=== PATIENT | male | born 1960 | race Caucasian/White ===

== ENCOUNTER 2017-04-16 11:47 | Observation (INO) | payer MEDICARE ==
[~2017-04-16] VITALS: Ht 167.6 cm; Wt 86.6 kg
[2017-04-16 12:09] LABS: BASOPHILS 0.1 % (0-2); EOSINOPHILS 1.5 % (0-7); HEMATOCRIT 38.6 % (42.0-54.0); HEMOGLOBIN 12.8 g/dL (13.5-17.5); IMMATURE GRANULOCYTES 0.1 % (0-5); LYMPHOCYTES 25.2 % (15-50); MCH 31.5 pg (26.0-34.0); MCHC 33.2 g/dL (31.0-37.0); MCV 95.1 fL (80.0-100.0); MEAN PLATELET VOLUME 9.4 fL (7.4-10.4); MONOCYTES 6.1 % (2-11); PLATELET COUNT 281 10x3/uL (130-400); RBC 4.06 10x6/uL (4.20-6.10); RDW 13.6 % (11.5-14.5); WBC 6.8 10x3/uL (4.8-10.8)
[2017-04-16 12:32] LABS: ALBUMIN 3.6 g/dL (3.4-5.0); ALKALINE PHOSPHATASE 121 U/L (46-116); ALT (SGPT) 18 U/L (10-68); BILIRUBIN - TOTAL 0.32 mg/dL (0.2-1.3); CALC OSMOLALITY 276 mosm/kg (275-300); CALCIUM 8.8 mg/dL (8.5-10.1); CARBON DIOXIDE 28.4 mmol/L (21.0-32.0); CHLORIDE - SERUM 99 mmol/L (98-107); GLUCOSE 144 mg/dL (74-106); POTASSIUM - SERUM 3.9 mmol/L (3.5-5.1); SODIUM 137 mmol/L (136-145); UREA NITROGEN 13 mg/dL (7-18); eGFR NON AFRICAN AMERICAN 82 mL/min (90-120)
[2017-04-16 12:44] LABS: CHOL - HDL RATIO 5.2 ratio (2.3-4.9); CHOLESTEROL, TOTAL 172 mg/dL (0-200); CKMB 0.5 U/L (0.0-3.6); CREATINE KINASE 72 UL (21-232); HDL CHOLESTEROL 33 mg/dL (32-96); LDL CHOLESTEROL 80 mg/dL (0-100); LDL-HDL RATIO 2.4 ratio (1.5-3.5); TRIGLYCERIDE 296 mg/dL (30-200)
[2017-04-16 12:45] LABS: TROPONIN-I < 0.017 ng/mL (0.000-0.060)
--- NOTE | 2017-04-16 13:33 | NUR ---
ASSESSED RESP STATUS. PT SUB C/O IRRITATING COUGH ALSO SUB CO NON PRODUCTIVE COUGH. BILATERAL DIMINISHED BREATH SOUNDS WITH FAINT EXP WHEEZE LOCATED RIGHT APICAL AREA. SPO2 CURRENT 97% ON 29% FI02 BILATERAL EXCURSION NOTED ZERO S/S OF IMMEDIATE RESP DISTRESS AT THIS TIME
[2017-04-16 17:19] LABS: CKMB 0.6 U/L (0.0-3.6); CREATINE KINASE 79 UL (21-232)
[2017-04-16 17:20] LABS: TROPONIN-I < 0.017 ng/mL (0.000-0.060)
[2017-04-16 18:03] LABS: % SATURATION 17 % (15-55); IRON 64 ug/dl (35-150); TOTAL IRON BIND CAPACITY 356 ug/dl (260-445); UNSAT IRON BIND CAPACITY 292 ug/dl (150-375)
[2017-04-16] MEDS ORDERED: XANAX1 MG PO (20:17)
[2017-04-16] MEDS ORDERED: ROXICODONE15 MG PO (20:17)
[2017-04-16] MEDS ORDERED: MS CONTIN60 MG PO (20:17)
[2017-04-16] MEDS ORDERED: AMITIZA24 MCG PO (20:18)
[2017-04-16] MEDS ORDERED: OMEPRAZOLE20 M1 PO (20:18)
[2017-04-16] MEDS ORDERED: ALDACTONE25 MG PO (20:18)
[2017-04-16] MEDS ORDERED: K-TAB10 MEQ PO (20:19)
[2017-04-16] MEDS ORDERED: DEPAKOTE250 MG PO (20:19)
[2017-04-16] MEDS ORDERED: ZYLOPRIM100 MG PO (20:19)
[2017-04-16] MEDS ORDERED: PRAVASTATIN SOD10 MG PO (20:20)
[2017-04-16] MEDS ORDERED: MYSOLINE 50 MG50 MG PO (20:20)
[2017-04-16] MEDS ORDERED: BUMEX2 MG PO (20:20)
[2017-04-16] MEDS ORDERED: ROBAXIN500 MG PO (20:20)
[2017-04-16] MEDS ORDERED: SEROQUEL200 MG PO (20:21)
[2017-04-16] MEDS ORDERED: NEURONTIN 400400 MG PO (20:21)
[2017-04-16] MEDS ORDERED: FLOVENT DI50 MCG/DIS INH (20:21)
[2017-04-16] MEDS ORDERED: GLYCOLAX527 GM PO (20:21)
[2017-04-16] MEDS ORDERED: PROZAC20 MG PO (20:22)
[2017-04-16] MEDS ORDERED: TRAZODONE HCL150 MG PO (20:22)
[2017-04-16] MEDS ORDERED: COMBIVENT RESPIM4 GM INH (20:23)
[2017-04-16] MEDS ORDERED: SEROQUEL50 MG PO (20:23)
[2017-04-16] MEDS ORDERED: BUSPAR10 MG PO (20:23)
[2017-04-16] MEDS ORDERED: SEROQUEL300 MG PO (20:23)
[2017-04-16] MEDS ORDERED: ZOFRAN4 MG PO (20:24)
[2017-04-16] MEDS ORDERED: LOMOTIL TABLET1 TAB PO (20:24)
[2017-04-16] MEDS ORDERED: BUSPAR 15 MG TA15 MG PO (20:24)
--- NOTE | 2017-04-16 20:48 | NUR ---
PT AWAKE, ALERT, ORIENTED, HOWEVER SLOW TO ANSWER AND IS A QUESTIONABLE TO POOR HISTORIAN. UNABLE TO VERIFY MEDS OR WHEN EACH MED WAS LAST TAKEN. PT ASKING FOR ICE CREAM AND A CUP OF ICE FOR HIS SPRITE, DENIES ANY OTHER NEEDS. I FLUSHED PTS IV TO LT AC WITHOUT ANY DIFFICULTY. WILL CONTINUE TO MONITOR CLOSELY. BED LOW, CALL LIGHT IN REACH, SIDE RAILS X 2, HOB 35 DEGREES.
[2017-04-16 21:38] VITALS: BP 114/59
[2017-04-16 23:24] LABS: CKMB 0.5 U/L (0.0-3.6); CREATINE KINASE 67 UL (21-232)
[2017-04-16 23:25] LABS: TROPONIN-I < 0.017 ng/mL (0.000-0.060)
[2017-04-17 00:37] VITALS: BP 110/61
[2017-04-17 01:34] VITALS: BP 114/59; Ht 167.6 cm; Wt 86.6 kg
[2017-04-17 04:53] VITALS: BP 126/61
[2017-04-17 05:36] LABS: BASOPHILS 0.2 % (0-2); EOSINOPHILS 2.2 % (0-7); HEMATOCRIT 36.8 % (42.0-54.0); HEMOGLOBIN 12.1 g/dL (13.5-17.5); IMMATURE GRANULOCYTES 0.2 % (0-5); LYMPHOCYTES 26.2 % (15-50); MCH 31.7 pg (26.0-34.0); MCHC 32.9 g/dL (31.0-37.0); MCV 96.3 fL (80.0-100.0); MEAN PLATELET VOLUME 9.4 fL (7.4-10.4); MONOCYTES 6.5 % (2-11); NEUTROPHILS 64.7 % (40-80); PLATELET COUNT 303 10x3/uL (130-400); RBC 3.82 10x6/uL (4.20-6.10); RDW 13.7 % (11.5-14.5)
[2017-04-17 05:40] LABS: WBC 11.3 10x3/uL (4.8-10.8)
[2017-04-17 06:10] LABS: CALC OSMOLALITY 273 mosm/kg (275-300); CALCIUM 8.6 mg/dL (8.5-10.1); CARBON DIOXIDE 32.6 mmol/L (21.0-32.0); CHLORIDE - SERUM 99 mmol/L (98-107); CKMB 0.4 U/L (0.0-3.6); CREATINE KINASE 62 UL (21-232); GLUCOSE 111 mg/dL (74-106); POTASSIUM - SERUM 4.2 mmol/L (3.5-5.1); SODIUM 136 mmol/L (136-145); UREA NITROGEN 14 mg/dL (7-18); eGFR NON AFRICAN AMERICAN 82 mL/min (90-120)
[2017-04-17 06:13] LABS: TROPONIN-I < 0.017 ng/mL (0.000-0.060)
[2017-04-17 08:17] VITALS: BP 100/61
--- NOTE | 2017-04-17 10:46 | NUR ---
TELEMETRY SR. ECHO COMPLETED AT BS. CALL LIGHT IN REACH. WILL CONT. PLAN OF CARE.
[2017-04-17 11:22] VITALS: BP 113/74
--- NOTE | 2017-04-17 12:04 | NUR ---
TELEMETRY SR. UP AMBULATING HALLWAY. GAIT STEADY.
[2017-04-17] MEDS ORDERED: NICODERM C1 PATCH .2 TRANSDERM (12:06)
[2017-04-17] MEDS ORDERED: Mevacor PO (12:07)
--- NOTE | 2017-04-17 13:48 | NUR ---
IV AND TELEMETRY DCD. DC PLANS GIVEN. UNDERSTANDING VOICED. ESCORTED TO CAR BY CAREGIVER.
[2017-04-18 08:18] LABS: FOLATE (FOLIC ACID) - SERUM 2.2 ng/mL (>3.0)
--- NOTE | 2017-04-22 13:58 | CN ---
PATIENT NAME:MARIS CLARK MEDICAL RECORD: [id number] : 60 LOCATION:DKael D.2116 ADMIT DATE: 04/16/17 ACCOUNT: [id number] CONSULTING PHYSICIAN: MARK BORJA MD REFERRING PHYSICIAN: ALIA ARVIZU MD DATE OF CONSULTATION: 04/17/2017 HISTORY OF PRESENT ILLNESS: A 56-year-old gentleman with no known history of coronary artery disease. He has a history of dyslipidemia, hypertension. The last week and he had an episode of chest pain, resolved spontaneously. Enzymes negative. ECG without acute change. We are asked to see him concerning cardiovascular status. PAST MEDICAL HISTORY: Includes: 1. History of seizure disorder. 2. Chronic pain. 3. Anxiety disorder. MEDICATIONS: Include Bumex 2 mg p.o. b.i.d., trazodone 150 mg p.o. q.h.s., BuSpar 10 mg b.i.d., Seroquel 50 mg p.o. q.a.m. and 300 q.p.m., primidone 50 t.i.d., Roxicodone 15 mg q.4 hours p.r.n., morphine or MS Contin 60 mg b.i.d., Neurontin 400 t.i.d., Prozac 20 every day, Depakote 250 b.i.d., Xanax 1 mg p.o. b.i.d. p.r.n., Aldactone 25 every day, pravastatin 10 every day, and aspirin daily. SOCIAL HISTORY: recently. He takes care of his ADLs. He is a nonsmoker, nondrinker. ALLERGIES: HALDOL AND PROLIXIN. REVIEW OF SYSTEMS: The patient reports easy bruising but reports no swollen glands. The patient reports no fever, no night sweats, no significant weight gain, no significant weight loss. No significant exercise tolerance. The patient reports no dry eyes, no irritation, no vision change. Patient reports no difficulty hearing and no ear pain. Patient reports no frequent nose bleeds or nose and sinus problems. Patient reports on arm pain on exertion. No shortness of breath while lying down. No history of heart murmur. Patient reports no cough, no wheezing or coughing up blood. Patient reports no abdominal pain, no vomiting. Normal appetite. No diarrhea and not vomiting blood. No nausea and no constipation. Patient reports no incontinence. No difficulty urinating. No hematuria. No increased frequency. Patient reports no muscle aches. No weakness, no arthralgias, no back pain. No swelling of the extremities. Patient reports no abnormal mole, no jaundice, no rashes. Reports no loss of consciousness. No weakness and no numbness. No seizures, dizziness, or headaches. The patient reports no depression, no sleep disturbance, feeling safe in a relationship and no alcohol abuse. Patient reports on fatigue. Reports no runny nose or sinus pressure. No itching, no hives, and no frequent sneezing. PHYSICAL EXAMINATION: GENERAL: Pleasant gentleman in no acute distress. VITAL SIGNS: Blood pressure 100/60 and pulse 81. HEENT: Normocephalic, atraumatic. NECK: No bruits noted. HEART: Regular, II/ systolic ejection murmur. CONSULT REPORT [id number] CLARKMARIS LUNGS: Good air excursion. ABDOMEN: Soft, nontender. EXTREMITIES: Pulses 2+. No edema. NEUROLOGIC: Grossly intact. DIAGNOSTIC DATA: ECG is normal. Cardiac enzymes normal times 3. IMPRESSION: Certainly has risk factors for coronary artery disease; however, has obvious social stressors at home, would like to defer any workup, I think it is reasonable at this time. We will see him back in the office in 2-3 weeks and return to the ER if symptoms recur. TRANSINT:[id number] Voice Confirmation ID: [id number] DOCUMENT ID: [id number] MARK BORJA MD at 1358 CC: [id number] DICTATION DATE: 04/17/17905 CHAIN PULLER: 04/17/17 1326 DIS IN 04/17/17 [facility] [address] [place] [address]
--- NOTE | 2017-04-22 13:58 | EC ---
PATIENT:MARIS CLARK DATE OF SERVICE: 04/16/17 SEX: M MEDICAL RECORD: [id number] DATE OF : 60 LOCATION:D. D.211 AGE OF PATIENT: 56 ADMISSION DATE: 04/16/17 REFERRING PHYSICIAN: INTERPRETING PHYSICIAN: MARK BORJA MD ECHOCARDIOGRAM REPORT ECHO CHARGES 4 ECHO COMPLETE CLINICAL DIAGNOSIS: CHF ECHOCARDIOGRAPHIC MEASUREMENTS (adult normal given) AC root (d.<3.7cm) 3.2 cm LV Septum d (<1.2 cm> 1.4 cm Valve Excursion 2.3 cm LV Septum (systole) 1.9 cm Left Atria (s.<4.0cm> 4.2 cm LVPW d(<1.2cm) 1.1 cm RV (d.<2.3cm) 2.5 cm LVPW (sytole) 1.9 cm LV diastole(<5.6CM) 4.3 cm MV E-F(>70mm/sec) cm LV systole 2.1 cm LVOT Diameter 1.9 cm MV exc.(>10mm) cm Est.ejection fraction (50-75%) % Pericardial Effusion N DOPPLER: LVIT cm/sec A 178 cm/sec E 128 cm/sec LA cm/sec RVSP 22.0 mmHg LVOT 162 cm/sec AOP1/2T m/s Asc. Ao 164 cm/sec RVOT 91.0 cm/sec RA cm/sec PA 121 cm/sec AV Gradient Peak 11.0 mmHg AV Mean 6.4 mmHg AV Area 3.1 cm MV Gradient Peak 15.1 mmHg MV Mean 4.2 mmHg MV Area cm COMMENTS: Centralized Traffic Control Operator: Ila FRANZOE Mica Washer Gluer: 3 Dr. Ramos TAPE# PACS DATE OF SERVICE: 04/17/2017 Adequate 2D echo, color flow, spectral Doppler, and M-Mode. No LVH. LV internal dimensions are normal. Wall motion is normal. EF is greater than or equal to 55%. Aortic valve is tricuspid. No evidence of stenosis with Doppler interrogation. Left atrium is normal. Mitral valve shows no prolapse. Trace MR. Right-sided chamber is grossly normal. Trace TR. TRANSINT:[id number] Voice Confirmation ID: [id number] DOCUMENT ID: [id number] ECHOCARDIOGRAM REPORT [id number] MARIS CLARK MARK BORJA MD at 1358 CC: [id number] DICTATION DATE: 04/17/17 1251 GAMMA FACILITIES OPERATOR: 04/17/17 1414 DIS IN 04/17/17 [id number] [place] [address]
== END 2017-04-17 13:48 | disposition home or self-care (01) ==
LOC: D.ER 11:47 → D.M2 18:20 → OBSVTIME 18:20 → D.M2 04-17 13:48
PROVIDERS: Emergency Medicine; ADMIT Family Medicine
DX: R07.89 Other chest pain (principal); I50.9 Heart failure, unspecified; J44.9 Chronic obstructive pulmonary disease, unspecified; F17.203 Nicotine dependence unspecified, with withdrawal; D64.9 Anemia, unspecified; G89.29 Other chronic pain; G40.909 Epilepsy, unspecified, not intractable, without status epilepticus; F41.9 Anxiety disorder, unspecified

== ENCOUNTER 2017-05-22 12:04 | Outpatient (CLI) | payer MEDICARE ==
[~2017-05-22] VITALS: Ht 167.6 cm; Wt 88.6 kg
--- NOTE | ~2017-05-22 | OP ---
PATIENT NAME: MARIS CLARK MEDICAL RECORD: [id number] :60 LOCATION:D.CAT ADMISSION DATE: SURGEON: MARK BORJA MD DATE OF OPERATION: 05/22/2017 PROCEDURES: Left heart catheterization and selective coronary angiography, right femoral approach. CATHETERS: A 5-Russian sheath, 5/4 left and right Evi, 5/4 pig. The procedure was well tolerated. The patient returned to baer. Sheath removed. Adequate hemostasis was obtained and closed with ExoSeal device. FINDINGS: Left ventriculography in 30-degree HENSLEY view: Normal wall motion. Normal systolic function. CORONARY ANATOMY. LEFT MAIN: Left main is free of disease. LAD: Free of disease in the diagonal system. CIRCUMFLEX: Free of disease in the marginal system. RIGHT CORONARY ARTERY: Dominant artery, gives rise to PDA, free of disease. IMPRESSION: Normal systolic function. Normal coronary anatomy. TRANSINT:[id number] Voice Confirmation ID: [id number] DOCUMENT ID: [id number] MARK BORJA MD at 1318 CC: [id number] DICTATION DATE: 05/22/17 1455 VALET SERVICE ATTENDANT: 05/22/17 1813 DEP CLI 05/22/17 [facility] [address] [place] [address]
--- NOTE | ~2017-05-22 | HEMODYNAMI ---
PATIENT:MARIS CLARK MEDICAL RECORD: [id number] : 60 LOCATION:DSIMBA ADMISSION DATE: 05/22/17 Generatedon:05/22/201714:52 Patient name: MARIS CLARK Patient #: [id number] SSN: : 1960 Date of study: 05/22/2017 Page: Of Hemodynamic Procedure Report Patient Data Patient Demographics Procedure consent was obtained First Name: MARIS Gender: Male Last Name: EDUARDO : 1960 Patient #: [id number] Age: 56 year(s) Race: Unknown Additional ID: [id number] Contact details [address]: [address] [place] [address] State: [place] City: [place] Zip code: [address] Past Medical History Allergies Allergen Reaction Date Comments Reported Other allergy 05/22/2017 HALDOL, PROLIXIN Admission Admission Data Admission Date: 05/22/2017 Admission Time: 12:04 Height (in.): 5.9 BSA: 0.33 (m2) Height (cm.): 14.99 BMI: 3595.13 (kg/m2) Weight (lbs.): 178 Weight (kg.): 80.74 Lab Results Lab Result Date: 05/22/2017 Lab Result Time: 0:00 Biochemistry Name Units Result Min Max BUN mg/dl 9 --(*---)-- 7 18 Creatinine mg/dl 1 --(--*-)-- 0.6 1.3 CBC Name Units Result Min Max Hemoglobin g/dl 11.7 *-(----)-- 13.5 17.5 Procedure Procedure Types Cath Procedure Diagnostic Procedure LHC [facility] w/Coronaries Miscellaneous Procedures Moderate Sedation up to 15 minutes Procedure Description Procedure Date Procedure Date: 05/22/2017 Procedure Start Time: 14:41 Procedure End Time: 14:51 Procedure Staff Name Function Jeffry Ramos MD Performing Physician Swetha Mckeon RT Monitor Mirtha Michel RT Scrub Jon Lorigan RN Nurse Procedure Data Cath Procedure Fluoroscopy Diagnostic fluoroscopy Total fluoroscopy Time: 1.4 time: 1.4 min min Diagnostic fluoroscopy Total fluoroscopy dose: 420 dose: 420 mGy mGy Contrast Material Contrast Material Type Amount (ml) Isovue 300 63 Entry Location Entry Primary Successful Side Size Upsize Upsize Entry Closure Succes sful Closure Location (Fr) 1 (Fr) 2 (Fr) Remarks Device Remarks Femoral Right 5 Fr Exoseal artery Estimated blood loss: 5 ml Diagnostic catheters Device Type Used For End Catheter Placement MULTIPACK JL 4.0 5Fr Procedure catheter MULTIPACK 3DRC 5Fr Procedure catheter MULTIPACK Pigtail 5 Fr Procedure catheter Procedure Complications No complications Procedure Medications Medication Administration Route Dosage 0.9% NaCl I.V. 100 ml/hr Oxygen NC 2 l/min Heparin Flush Bag added to field 2 bags (1000units/500ml NS) Lidocaine 2% added to field 20 Benadryl I.V. 50 mg Versed I.V. 1 mg Fentanyl I.V. 50 mcg Versed I.V. 0.5 mg Fentanyl I.V. 25 mcg Hemodynamics Rest BSA: 0.33 (m2) HGB: 11.7 (g/dl) O2 Consumption: Estimated: 39.42 (ml/min) O2 Con sumption indexed: Estimated:119.45 (ml/min/m) Heart Rate: 73 (bpm) Pressure Samples Time Site Value (mmHg) Purpose Heart Use Rate(bpm) 14:47 LV 113/-5,20 Snapshot 62 Gradients Valve Time Site Site Mean SEP/DFP Peak To Heart Use 1 2 (mmHg) (sec/min) Peak Rate (mmHg) (bpm) Aortic 14:48 LV AO 74 Snapshots Pre Cath Intra NCS Post Cath Vital Signs Time Heart Resp SPO2 etCO2 NIBP Rhythm Pain Sedation Rate (ipm) (%) (mmHg) (mmHg) Status Level (bpm) 14:26:08 74 15 99 39.9 127/72(98) NSR 0 (11) 10(A) , No pain 14:30:44 71 16 96 45.9 103/64(80) NSR 0 (11) 10(A) , No pain 14:35:18 70 14 96 45.2 105/67(84) NSR 0 (11) 10(A) , No pain 14:39:55 69 14 98 47.4 117/63(95) NSR 0 (11) 10(A) , No pain 14:44:33 70 14 96 42.9 111/63(85) NSR 0 (11) 9(A) , No pain 14:49:10 73 14 96 45.2 110/63(83) NSR 0 (11) 9(A) , No pain Medications Time Medication Route Dose Verified Delivered Reason Notes Effe ctiveness by by 14:30:13 0.9% NaCl I.V. 100 Jon Jon Per ml/hr Sakshi Cantor physician RN RN 14:30:23 Oxygen NC 2 Jon Jon Per l/min Sakshi Cantor physician RN RN 14:30:36 Heparin Flush added 2 Jon Jon used for Bag to bags Lorigan Lorigan procedure (1000units/500ml RN RN NS) 14:30:47 Lidocaine 2% added 20ml Jon Jon for local to vial Lorigan Lorigan anesthetic RN RN 14:30:57 Benadryl I.V. 50 mg Jon Jon Per Sakshi Cantor physician RN RN 14:31:15 Versed I.V. 1 mg Jon Jon for Lorigan Lorigan sedation RN RN 14:31:24 Fentanyl I.V. 50 Jon Jon for mcg Lorigan Lorigan sedation RN RN 14:43:24 Versed I.V. 0.5 Jon Jon for mg Lorigan Lorigan sedation RN RN 14:43:32 Fentanyl I.V. 25 Jon Jon for mcg Lorigan Lorigan sedation RN special education itinerant teacher Log Time Note 14:16:42 Jon Cantor RN sent for patient. Start room use. 14:16:43 Time tracking: Regular hours 14:16:47 Plan of Care:Hemodynamics will remain stable., Cardiac rhythm will remain stable., Comfort level will be maintained., Respiratory function will remain adequate., Patient/ family verbilizes understanding of procedure., Procedure tolerated without complication., Recovers from procedure without complications.. 14:17:09 H&P Date Dictated: 05/17/2017 Within 30 days and on chart., H&P Addendum completed by physician on day of procedure. (MUST COMPLETE FOR ALL OUTPATIENTS). 14:17:20 Patient Height : 5.9 inches 14:17:24 Patient Weight : 178 lbs 14:19:10 Lab Result : BUN 9 mg/dl 14:19:10 Lab Result : Creatinine 1 mg/dl 14:19:10 Lab Result : Hemoglobin 11.7 g/dl 14:19:21 Patient received from Pre/Post Procedure Room to CCL 1 Alert and oriented. Tansferred to table in Supine position. 14:19:22 Warm blankets applied, and senia hugger turned on for patient comfort. 14::22 Correct patient and procedure confirmed by team. 14::23 Signed procedure consent form obtained from patient. 14::24 ECG and BP/O2 sat monitors applied to patient. 14:25:20 Vital chart was started 14:27:09 Baseline sample Acquired. 14:27:14 Rhythm: sinus rhythm 14:27:16 Full Disclosure recording started 14::17 Pre-procedure instructions explained to patient. 14:27:18 Pre-op teaching completed and patient verbalized understanding. 14:27:20 Family in patients room. 14::22 Patient NPO since Midnight. 14:29:58 Patient allergic to Other allergyHALDOL, PROLIXIN 14:30:00 Is the patient allergic to Iodine/contrast media? No. 14:30:03 Is patient on blood thinner?No 14:30:05 Patient diabetic? No. 14:30:09 Previous problem with sedation/anesthesia? No ? 14:30:10 Snore? Yes 14:30:11 Sleep apnea? No 14:30:12 Deviated septum? No 14:30:13 0.9% NaCl 100 ml/hr I.V. was administered by Jon Cantor RN; Per physician; 14:30:13 Opens mouth fully? Yes 14:30:14 Sticks out tongue? Yes 14:30:18 Airway obstruction? Yes COPD 14:30:23 Oxygen 2 l/min NC was administered by Jon Cantor RN; Per physician; 14:30:27 Dentures? No ? 14:30:30 Pre procedure: right dorsailis pedis pulse 2+ Normal; easily identifiable; not easily obliterated 14:30:32 Patient pain scale 0/10 ?. 14:30:36 Heparin Flush Bag (1000units/500ml NS) 2 bags added to field was administered by Jon Cantor RN; used for procedure; 14:30:38 IV patent on arrival in left antecubital with 0.9% NaCl at KVO. 14:30:44 Lab results completed and on chart. 14:30:47 Lidocaine 2% 20ml vial added to field was administered by Jon Cantor RN; for local anesthetic; 14:30:47 Right groin area was prepped with chlora-prep and draped in sterile fashion 14:30:48 Alarms reviewed by R. N. 14:30:52 Sharps counted by scrub and verified by R.N. 14::54 --------ALL STOP TIME OUT------ 14:30:54 Final Timeout: patient, procedure, and site verified with staff and physician. All members of the team are in agreement. 14:30:56 Right groin site verified by team. 14:30:57 Benadryl 50 mg I.V. was administered by Jon Cantor RN; Per physician; 14:30:59 Physical assessment completed. ASA score P 2 - A patient with mild systemic disease as per Jeffry Ramos MD. 14:31:02 Sedation plan: IV Moderate Sedation Medication:Versed, Fentanyl 14:31:15 Versed 1 mg I.V. was administered by Jon Cantor RN; for sedation; 14:31:24 Fentanyl 50 mcg I.V. was administered by Jon Cantor RN; for sedation; 14:33:34 Use device set Femoral Dx 14:33:35 ACIST Syringe (80790) opened to sterile field. 14:33:36 ACIST Hand Control (86170) opened to sterile field. 14:33:37 ACIST Manifold (96566) opened to sterile field. 14:33:41 Bag Decanter (2001S) opened to sterile field. 14:33:43 Tegaderm 4 x 4 (1626W) opened to sterile field. 14:33:44 Medline Cath Pack ([id number]) opened to sterile field. 14:33:44 SHEATH 5FR [place] (OYY009) opened to sterile field. 14:33:45 DIAGNOSTIC WIRE .035 260cm J wire (917632) opened to sterile field. 14:33:46 DIAGNOSTIC Multipack 5Fr catheter set (MN8046) opened to sterile field. 14:33:47 PERCUTANEOUS ENTRY 19GA needle opened to sterile field. 14:41:17 Procedure started. 14:41:26 Local anesthetic to right femoral artery with Lidocaine 2% by Jeffry Ramos MD.INITIAL ACCESS ONLY 14:41:52 Zero performed for pressure channel P1 14:43:04 A 5 Fr sheath was inserted into the Right Femoral artery 14:43:14 A MULTIPACK JL 4.0 5Fr catheter was advanced over the wire and used for Procedure. 14:43:24 Versed 0.5 mg I.V. was administered by Jon Cantor RN; for sedation; 14:43:32 Fentanyl 25 mcg I.V. was administered by Jon Cantor RN; for sedation; 14:44:26 LCA angiography performed. 14:45:08 Catheter removed. 14:45:17 A MULTIPACK 3DRC 5Fr catheter was advanced over the wire and used for Procedure. 14:46:18 RCA angiography performed. 14:46:22 Catheter removed. 14:46:28 A MULTIPACK Pigtail 5 Fr catheter was advanced over the wire and used for Procedure. 14:46:42 Injector settings: Ml/sec: 10, Volume: 20, 14:46:46 LV gram done using HENSLEY 14:48:08 LV hemodynamics recorded. 14:48:16 EF : 55 % 14:48:18 Catheter removed. 14:48:29 EXOSEAL 5Fr (EX500) opened to sterile field. 14:48:39 Sheath removed intact; hemostasis achieved with Exoseal to the Right Femoral artery. 14:48:44 Procedure ended.(Physican Out) 14:48:55 Fluoroscopy time 01.40 minutes. 14:49:00 Fluoroscopy dose: 420 mGy 14:49:00 Flurop Dose total: 420 14:49:03 Contrast amount:Isovue 300 63ml. 14:49:08 Sharps counted by scrub and verified by R.N. 14:49:10 Insertion/operative site no bleeding no hematoma. 14:49:12 Post-op/insertion site Right Femoral artery dressed using a 4 x 4 and Tegaderm. 14:49:17 Post right femoral artery:stable, soft, clean and dry 14:49:52 Post procedure: right dorsailis pedis pulse 2+ Normal; easily identifiable; not easily obliterated. 14:49:56 Post-procedure physical assessment completed. ASA score P 2 - A patient with mild systemic disease as per Jeffry Ramos MD. 14:49:59 Post procedure rhythm: unchanged. 14:50:01 Estimated blood loss: 5 ml 14:50:03 Post procedure instruction explained to patient.Patient verbalizes understanding. 14:50:03 Patient needs reinforcement of post procedure teaching. 14:50:10 Procedure type changed to Cath procedure, Diagnostic procedure, LHC, LHC w/Coronaries, Miscellaneous Procedures, Moderate Sedation up to 15 minutes 14:50:40 Procedure and supply charges have been captured, reviewed, submitted and are correct. 14:50:43 Procedure Complication : No complications 14:51:28 Vital chart was stopped 14:51:28 See physician's report for complete and final results. 14:51:30 Report given to Pre/Post Procedure Room. 14:51:33 Patient transfered to Pre/Post Procedure Room with Bed. 14:51:35 Procedure ended. 14:51:35 Full Disclosure recording stopped 14:51:38 End room use (Document Last) Device Usage Item Name Manufacture Quantity Catalog Hospital Part Current Minimal Lot# / Number Charge Number Stock Stock Serial# Code ACIST Acist 1 04787 214433 [id number] 183860 20 Syringe Medical (80926) Systems Inc ACIST Hand Acist 1 18722 423911 665724 844380 5 Control Medical (18375) Systems Inc ACIST Acist 1 57925 867537 217061 029113 5 Manifold Medical (48359) Systems Inc Bag Decanter Microtek 1 2002S 455544 35496 702151 5 (2001S) Medical Inc. Tegaderm 4 x 3M 1 1626W 883083 897168 038668 5 4 (1626W) Medline Cath Cardinal 1 [id number] 719236 83075 621140 5 Pack Health ([id number]) SHEATH 5FR Terumo 1 CIM692 001929 017258 209138 40 [place] (JWN646) DIAGNOSTIC St Asael 1 627552 446999 408369 167667 30 WIRE .035 260cm J wire (927154) DIAGNOSTIC Cardinal 1 BM7390 513638 29082 128214 30 Multipack Health 5Fr catheter set (AO8990) PERCUTANEOUS [facility] 1 Q86784 525843 302850 5 ENTRY 19GA needle MULTIPACK JL Cardinal 1 128245 5 4.0 5Fr Health catheter MULTIPACK Cardinal 1 280568 5 3DRC 5Fr Health catheter MULTIPACK Cardinal 1 811729 5 Pigtail 5 Fr Health catheter EXOSEAL 5Fr Cardinal 1 EX500 667067 827910 421147 10 (EX500) Health Signature Audit Gerlaw Stage Time Signature Unsigned Intra-Procedure 05/22/2017 Swetha Mckeon 2:52:01 PM RT(R) Signatures Monitor : Swetha Mckeon Signature : RT Date : Time : [place] [address] [place] [address]
[~2017-05-22 12:04] MED LIST: ALDACTONE25 MG PO; AMITIZA24 MCG PO; BUMEX2 MG PO; BUSPAR 15 MG TA15 MG PO; BUSPAR10 MG PO; COMBIVENT RESPIM4 GM INH; DEPAKOTE250 MG PO; FLOVENT DI50 MCG/DIS INH; GLYCOLAX527 GM PO; K-TAB10 MEQ PO; LOMOTIL TABLET1 TAB PO; MS CONTIN60 MG PO; MYSOLINE 50 MG50 MG PO; Mevacor PO; NEURONTIN 400400 MG PO; NICODERM C1 PATCH .2 TRANSDERM; OMEPRAZOLE20 M1 PO; PRAVASTATIN SOD10 MG PO; PROZAC20 MG PO; ROBAXIN500 MG PO; ROXICODONE15 MG PO; SEROQUEL200 MG PO; SEROQUEL300 MG PO; SEROQUEL50 MG PO; TRAZODONE HCL150 MG PO; XANAX1 MG PO; ZOFRAN4 MG PO; ZYLOPRIM100 MG PO
[2017-05-22] MEDS ORDERED: AMITIZA24 MCG PO (12:42)
[2017-05-22 12:48] VITALS: BP 140/64; Ht 167.6 cm; Wt 88.6 kg
[2017-05-22 12:55] LABS: BASOPHILS 0.1 % (0-2); EOSINOPHILS 0.9 % (0-7); HEMATOCRIT 34.7 % (42.0-54.0); HEMOGLOBIN 11.7 g/dL (13.5-17.5); LYMPHOCYTES 45.3 % (15-50); MCH 31.3 pg (26.0-34.0); MCHC 33.7 g/dL (31.0-37.0); MCV 92.8 fL (80.0-100.0); MEAN PLATELET VOLUME 9.1 fL (7.4-10.4); MONOCYTES 7.6 % (2-11); NEUTROPHILS 46.1 % (40-80); PLATELET COUNT 295 10x3/uL (130-400); RBC 3.74 10x6/uL (4.20-6.10); WBC 7.6 10x3/uL (4.8-10.8)
[2017-05-22 13:07] LABS: CALC OSMOLALITY 266 mosm/kg (275-300); CALCIUM 8.9 mg/dL (8.5-10.1); CHLORIDE - SERUM 95 mmol/L (98-107); GLUCOSE 100 mg/dL (74-106); POTASSIUM - SERUM 3.9 mmol/L (3.5-5.1); SODIUM 134 mmol/L (136-145); UREA NITROGEN 9 mg/dL (7-18); eGFR NON AFRICAN AMERICAN 82 mL/min (90-120)
== END 2017-05-22 17:17 | disposition home or self-care (01) ==
LOC: D.CATH 12:04
PROVIDERS: Internal Medicine Interventional Cardiology
DX: I25.119 Atherosclerotic heart disease of native coronary artery with unspecified angina pectoris (principal); I10 Essential (primary) hypertension; E78.5 Hyperlipidemia, unspecified; F17.200 Nicotine dependence, unspecified, uncomplicated; Z01.812 Encounter for preprocedural laboratory examination

== ENCOUNTER 2017-07-04 10:59 | Emergency (ER) | payer MEDICARE ==
[2017-05-22 12:48] VITALS: BMI 31.5
[2017-07-04 11:38] LABS: BASOPHILS 0.2 % (0-2); EOSINOPHILS 2.1 % (0-7); HEMATOCRIT 32.7 % (42.0-54.0); HEMOGLOBIN 10.9 g/dL (13.5-17.5); IMMATURE GRANULOCYTES 0.2 % (0-5); MCH 30.9 pg (26.0-34.0); MCHC 33.3 g/dL (31.0-37.0); MCV 92.6 fL (80.0-100.0); MEAN PLATELET VOLUME 9.1 fL (7.4-10.4); MONOCYTES 7.3 % (2-11); NEUTROPHILS 43.2 % (40-80); PLATELET COUNT 250 10x3/uL (130-400); RBC 3.53 10x6/uL (4.20-6.10); RDW 13.9 % (11.5-14.5); WBC 6.2 10x3/uL (4.8-10.8)
[2017-07-04 12:16] LABS: ALBUMIN 3.1 g/dL (3.4-5.0); ANION GAP 10.7 mmol/L (8-16); BILIRUBIN - TOTAL 0.34 mg/dL (0.2-1.3); CALCIUM 8.5 mg/dL (8.5-10.1); CREATININE - SERUM 1.1 mg/dL (0.6-1.3); POTASSIUM - SERUM 3.7 mmol/L (3.5-5.1); PROTEIN - SERUM 6.9 g/dL (6.4-8.2)
[2017-07-04 14:36] LABS: APPEARANCE CLEAR (CLEAR); COLOR DK YELLOW (YELLOW)
[2017-07-04 14:37] LABS: BILIRUBIN NEGATIVE (NEGATIVE); GLUCOSE NEGATIVE (NEGATIVE); KETONE NEGATIVE (NEGATIVE); NITRITE NEGATIVE (NEGATIVE); PROTEIN NEGATIVE (NEGATIVE); UROBILINOGEN NORMAL (NORMAL)
== END 2017-07-04 19:39 | disposition home or self-care (01) ==
LOC: D.ER 10:59
PROVIDERS: Family Medicine
DX: N50.82 Scrotal pain (principal); N32.89 Other specified disorders of bladder; I10 Essential (primary) hypertension; J44.9 Chronic obstructive pulmonary disease, unspecified; Z86.59 Personal history of other mental and behavioral disorders

== ENCOUNTER 2019-09-13 20:30 | Inpatient (IN) | payer MEDICARE ==
[~2019-09-13] VITALS: Ht 167.6 cm; Wt 72.6 kg
[2019-09-13 21:06] LABS: BASOPHILS 0.1 % (0-2); EOSINOPHILS 1.3 % (0-7); HEMATOCRIT 34.6 % (42.0-54.0); HEMOGLOBIN 11.1 g/dL (13.5-17.5); IMMATURE GRANULOCYTES 0.2 % (0-5); LYMPHOCYTES 34.9 % (15-50); MCH 30.2 pg (26.0-34.0); MCHC 32.1 g/dL (31.0-37.0); MCV 94.3 fL (80.0-100.0); MEAN PLATELET VOLUME 8.7 fL (7.4-10.4); MONOCYTES 8.9 % (2-11); NEUTROPHILS 54.6 % (40-80); RBC 3.67 10x6/uL (4.20-6.10); RDW 16.7 % (11.5-14.5); WBC 9.4 10x3/uL (4.8-10.8)
[2019-09-13 21:07] LABS: PLATELET COUNT 308 10x3/uL (130-400)
[2019-09-13 21:16] LABS: CALC OSMOLALITY 279 mosm/kg (275-300); CALCIUM 8.6 mg/dL (8.5-10.1); CHLORIDE - SERUM 103 mmol/L (98-107); CREATININE - SERUM 0.8 mg/dL (0.6-1.3); GLUCOSE 98 mg/dL (74-106); POTASSIUM - SERUM 3.8 mmol/L (3.5-5.1); SODIUM 139 mmol/L (136-145); UREA NITROGEN 17 mg/dL (7-18); eGFR NON AFRICAN AMERICAN > 90 mL/min (90-120)
--- NOTE | 2019-09-13 21:18 | NUR ---
URINE CUP TO PATIENT.
[2019-09-13 21:24] LABS: ALBUMIN 3.4 g/dL (3.4-5.0); ALKALINE PHOSPHATASE 114 U/L (30-120); ALT (SGPT) 23 U/L (10-68); AMYLASE - SERUM 89 U/L (25-115); LIPASE 593 U/L (73-393); PROTEIN - SERUM 7.5 g/dL (6.4-8.2)
[2019-09-13 21:35] LABS: TROPONIN-I < 0.017 ng/mL (0.000-0.060)
--- NOTE | 2019-09-13 23:09 | NUR ---
PT STILL UNABLE TO GIVE UA/ FLUIDS BEGAN. RE-MEDICATED FOR PAIN. AWAITING BED ASSIGNMENT FOR ADMISSION. PT UPDATED. REPORT TO WINNIE PETERSON.
[2019-09-14] VITALS (7 sets, daily range): BP systolic 113–159; BP diastolic 55–78; Ht 167.6 cm; Wt 72.6 kg
--- NOTE | 2019-09-14 00:45 | NUR ---
FROM ER VIA STRETCHER TO BED LOW AND LOCKED AND CALL LIGHT PROVIDED PT REQUESTED SEVERAL NEEDS INCLUDING PAIN MEDS ALL NEEDS SEEN TO
[2019-09-14 01:04] LABS: BILIRUBIN NEGATIVE (NEGATIVE); GLUCOSE NEGATIVE (NEGATIVE); KETONE NEGATIVE (NEGATIVE); NITRITE NEGATIVE (NEGATIVE); UROBILINOGEN NORMAL (NORMAL)
[2019-09-14 01:05] LABS: BACTERIA FEW /hpf (NEGATIVE); EPITHELIAL CELLS 0-5 /hpf (0-5); RED CELLS - URINE 0-5 /hpf (0-5); WHITE CELLS - URINE 0-5 /hpf (NEGATIVE)
[2019-09-14 04:34] LABS: BASOPHILS 0.2 % (0-2); EOSINOPHILS 1.4 % (0-7); HEMATOCRIT 33.9 % (42.0-54.0); HEMOGLOBIN 10.6 g/dL (13.5-17.5); IMMATURE GRANULOCYTES 0.2 % (0-5); LYMPHOCYTES 32.1 % (15-50); MCH 29.4 pg (26.0-34.0); MCHC 31.3 g/dL (31.0-37.0); MCV 94.2 fL (80.0-100.0); MEAN PLATELET VOLUME 9.2 fL (7.4-10.4); MONOCYTES 10.7 % (2-11); NEUTROPHILS 55.4 % (40-80); PLATELET COUNT 319 10x3/uL (130-400); RDW 16.5 % (11.5-14.5); WBC 10.1 10x3/uL (4.8-10.8)
[2019-09-14 04:50] LABS: AMYLASE - SERUM 90 U/L (25-115); CALC OSMOLALITY 275 mosm/kg (275-300); CALCIUM 7.9 mg/dL (8.5-10.1); CARBON DIOXIDE 27.3 mmol/L (21.0-32.0); CHLORIDE - SERUM 102 mmol/L (98-107); CHOL - HDL RATIO 2.9 ratio (2.3-4.9); CHOLESTEROL, TOTAL 138 mg/dL (0-200); CREATININE - SERUM 0.8 mg/dL (0.6-1.3); GLUCOSE 112 mg/dL (74-106); HDL CHOLESTEROL 48 mg/dL (32-96); LDL CHOLESTEROL 77 mg/dL (0-100); LDL-HDL RATIO 1.6 ratio (1.5-3.5); POTASSIUM - SERUM 3.9 mmol/L (3.5-5.1); SODIUM 137 mmol/L (136-145); TRIGLYCERIDE 69 mg/dL (30-200); UREA NITROGEN 15 mg/dL (7-18); eGFR NON AFRICAN AMERICAN > 90 mL/min (90-120)
[2019-09-14 04:53] LABS: LIPASE 315 U/L (73-393)
--- NOTE | 2019-09-14 05:52 | NUR ---
POWER CHISEL OPERATOR ASSESSMENT HAS BEEN COMPLETED. PT RESTING IN BED.
--- NOTE | 2019-09-14 07:35 | NUR ---
2MG OF MORPHINE GIVEN FOR PAIN LEVEL OF 9/10. PT IN BED, WATCHING TV. A/O X4, RESP EVEN AND NONLABORED ON RA. PT DENIES ANY OTHER NEEDS AT THIS TIME. CALL LIGHT IN REACH,NAD NOTED, WILL CONTINUE TO MONITOR.
--- NOTE | 2019-09-14 19:30 | NUR ---
PT IN BED, AAO X 3, RESP EVEN AND UNLABORED, NO DISTRESS NOTED, CL IN REACH, SR UP X 2.
[2019-09-15] VITALS: BP 131/56
--- NOTE | 2019-09-15 03:36 | NUR ---
I have reviewed this patient and I concur with the Shift Assessment completed by the Licensed Practical Nurse today this shift.
[2019-09-15 04:00] VITALS: BP 132/55
[2019-09-15 04:57] LABS: BASOPHILS 0.2 % (0-2); HEMATOCRIT 35.8 % (42.0-54.0); HEMOGLOBIN 10.8 g/dL (13.5-17.5); IMMATURE GRANULOCYTES 0.3 % (0-5); LYMPHOCYTES 20.1 % (15-50); MCH 29.3 pg (26.0-34.0); MCHC 30.2 g/dL (31.0-37.0); MEAN PLATELET VOLUME 9.1 fL (7.4-10.4); MONOCYTES 6.9 % (2-11); NEUTROPHILS 71.5 % (40-80); PLATELET COUNT 329 10x3/uL (130-400); RBC 3.69 10x6/uL (4.20-6.10); RDW 16.8 % (11.5-14.5); WBC 10.2 10x3/uL (4.8-10.8)
[2019-09-15 05:20] LABS: ALBUMIN 3.3 g/dL (3.4-5.0); ALKALINE PHOSPHATASE 114 U/L (30-120); ALT (SGPT) 31 U/L (10-68); AMYLASE - SERUM 52 U/L (25-115); BILIRUBIN - TOTAL 0.33 mg/dL (0.2-1.3); CALC OSMOLALITY 276 mosm/kg (275-300); CALCIUM 7.9 mg/dL (8.5-10.1); CARBON DIOXIDE 30.3 mmol/L (21.0-32.0); CHLORIDE - SERUM 102 mmol/L (98-107); CREATININE - SERUM 0.8 mg/dL (0.6-1.3); GLUCOSE 110 mg/dL (74-106); LIPASE 60 U/L (73-393); POTASSIUM - SERUM 3.6 mmol/L (3.5-5.1); PROTEIN - SERUM 7.3 g/dL (6.4-8.2); SODIUM 139 mmol/L (136-145); UREA NITROGEN 8 mg/dL (7-18); eGFR NON AFRICAN AMERICAN > 90 mL/min (90-120)
[2019-09-15 06:35] LABS: ERYTHROCYTE SEDIMENTATION RATE 24 mm/hr (0-20)
--- NOTE | 2019-09-15 07:00 | NUR ---
RECEIVED PT FROM RECRUITMENT MANAGER.
--- NOTE | 2019-09-15 07:29 | NUR ---
ADMINSITERED MORNING MEDICATION, NO DIFFICULTY. PT IS RESTING COMFORTABLY IN BED AT THIS TIME. CAME IN AND ORDERED NORMAL DIET FOR BREAKFAST TO SEE IF PT CAN TOLERATE. WILL ORDER. DENIES ANY NEEDS AT THIS TIME. WILL CONTINUE TO MONITOR.
[2019-09-15 08:13] VITALS: BP 129/63
--- NOTE | 2019-09-15 11:37 | NUR ---
ADMINISTERED PRN BENADRYL FOR ITCHING. DC PT RIGHT AC IV, CATHETER TIP INTACT. PT SIGNING DISCHARGE PAPERWORK. DENIES ANY NEEDS.
--- NOTE | 2019-09-16 07:28 | HP ---
PATIENT: MARIS CLARK MEDICAL RECORD: [id number] ACCOUNT: [id number] LOCATION:[address] : 60 ADMISSION DATE: 09/13/19 PCP: ASHLEY HERNANDEZ MD HISTORY AND PHYSICAL EXAMINATION REASON FOR ADMISSION: Abdominal pain on morning of admission with nausea. HISTORY OF PRESENT ILLNESS: The patient is a 59-year-old male followed by Dr. Hernandez in [place]. He has a history of bipolar illness. He states he was seen for diarrhea at [facility] ER a week ago and that got better. He states this morning, he developed onset of some nausea upper abdominal and epigastric pain became worse. It did not radiate. He had no change in stools or blood per rectum. For this reason, he came to the ED. He had his gallbladder removed in May of this year, without incident. There was no mention of any retained gallstones. Denies history of alcohol use, although he takes several diuretics. PAST MEDICAL HISTORY: Bipolar depression; anxiety; had diarrhea with hypokalemia on 08/22/2019 treated outpatient; mechanical small-bowel obstruction that resolved on 08/03/2019; he was admitted for pneumonia on 07/25/2019 at [facility]; acute calculous cholecystitis post-cholecystectomy on 06/14/2019; and COPD. PAST SURGICAL HISTORY: Cholecystectomy, lumbar discectomy with pain stimulator implant, appendectomy. FAMILY HISTORY: Brother is healthy. SOCIAL HISTORY: He is a 1-pack a day smoker for many years. Does not drink alcohol or use illicit drugs. ALLERGIES: TO PROLIXIN AND HALDOL. HOME MEDICATIONS: Amitiza 24 mg b.i.d., Xanax 1 mg p.r.n. anxiety, morphine sulfate, MS Contin 60 mg p.o. q.12 hours, Roxicodone 15 mg p.o. q.4 hours p.r.n. breakthrough pain, omeprazole 20 mg a day, spironolactone 50 mg b.i.d., potassium chloride 10 mEq p.o. b.i.d., Depakote 250 mg p.o. b.i.d., Mysoline 50 mg p.o. t.i.d., Robaxin 500 mg p.o. q.i.d. p.r.n. muscle spasm, Bumex 2 mg p.o. b.i.d., Flovent Diskus 2 puffs b.i.d., gabapentin 400 mg p.o. t.i.d., Prozac 20 mg a day, trazodone 150 at bedtime, Seroquel 300 mg p.o. daily, DuoNeb updrafts, we will switch that to Combivent Respimat 1 puff q.i.d. REVIEW OF SYSTEMS: GENERAL: No fatigue or fever. HEENT: No recent visual change, sinus congestion, or sore throat. RESPIRATORY: No SOB or cough. CARDIAC: No chest pain, claudication or edema. GASTROINTESTINAL: No nausea, but has had some epigastric discomfort as mentioned, became more severe, without radiation. No change in stools or blood per rectum. No melena or hematochezia. GENITOURINARY: Nocturia once nightly. ENDOCRINE: Denies polyuria, polydipsia, heat or cold intolerance. NEUROLOGIC: No history of stroke, TIA, or vascular headaches. PSYCHIATRIC: Admits to chronically depressed mood with manic episodes, clinically stable on drug regimen. HISTORY AND PHYSICAL [id number] MARIS CLARK PHYSICAL EXAMINATION: VITAL SIGNS: Temp 98.4, pulse 90, respirations 20, blood pressure 130/69, sat 98% on room air. GENERAL: The patient is alert and oriented, minimal pain. HEENT: Unremarkable. Sclerae nonicteric. Oropharynx unremarkable. NECK: Supple, without bruits or masses. CHEST: Clear. HEART: Regular rate without murmur. ABDOMEN: Soft, minimally tender in the epigastrium. Bowel sounds are active. No stool in the vault. No rebound. EXTREMITIES: No CC&E. NEUROLOGICAL: The patient is oriented to person, place, and time. He has an intention tremor of his right hand noted. Gait was not tested. He denies any motor deficits. BACK: Shows postsurgical lower lumbar scar noted with pain stimulator. SKIN: Unremarkable. DIAGNOSTIC DATA: EKG shows sinus rhythm, no acute changes. CT of the abdomen shows some fatty stranding around the head of the pancreas, but no pseudocyst or masses appreciated. A cyst in the left lobe of the liver appears benign. Gallbladder is absent. LABORATORY DATA: White count 9400 with normal diff, H&H is 11 and 34.6 respectively. BMP is normal. Glucose is 98. Liver functions are normal. Troponin is normal. Triglycerides are 69. Cholesterol 138. Lipase is elevated at 593, amylase normal at 89. ASSESSMENT: 1. Pancreatitis, which cause abdominal pain, etiology unknown. 2. Recent cholecystectomy with normal liver functions. 3. Bipolar illness. 4. Chronic obstructive pulmonary disease. PLAN: We will monitor on clear liquids, analgesics. Further workup pending clinical course. We will also discontinue the Aldactone, which may be exacerbating his pancreatitis. TRANSINT:[id number] Voice Confirmation ID: [id number] DOCUMENT ID: [id number] ESAU DAVID MD at 0728 CC: [id number] DICTATION DATE: 09/14/19 1407 ELECTRICAL HIGH TENSION TESTER: 09/14/19 1622 DIS IN 09/15/19 [facility] [address] [place] [address]
--- NOTE | 2019-09-17 07:29 | MORECARE ---
CASE MANAGEMENT DISCHARGE SUMMARY PATIENT: MARIS CLARK UNIT: [id number] ADM DATE: 09/13/19 AGE: 59 : 60 SEX: M ROOM/BED: D.2104 AUTHOR: ROSALIND SANCHEZ PHYSICIAN: REFERRING PHYSICIAN: ESAU DAVID MD DATE OF SERVICE: 09/17/19 Discharge Plan Patient Name: MARIS CLARK [facility] [facility] 1960 Planned Disposition: Anticipated Discharge Date: Discharge Date: 09/15/2019 Expected LOS: Initial Reviewer: [email or web address] Initial Review Date: 09/17/2019 Generated: 09/17/19 8:29 am Patient Name: MARIS CLARK Page [id number] at 0729 All edits/amendments must be made on the electronic document DICTATION DATE: 09/17/19728 WATCHSTANDER: GAGE 09/17/19728 RPT#: [id number] DC DATE:09/15/19 STATUS: DIS IN [facility] [address] [facility] [place] [address] END OF REPORT
== END 2019-09-15 12:30 | disposition home or self-care (01) | DRG 440 ==
LOC: D.ER 20:30 → D.M2 23:39
PROVIDERS: Emergency Medicine; ADMIT Family Medicine; ATTEND Family Medicine
DX: K85.90 Acute pancreatitis without necrosis or infection, unspecified (principal); F31.9 Bipolar disorder, unspecified; J44.9 Chronic obstructive pulmonary disease, unspecified; Z72.0 Tobacco use

== ENCOUNTER 2019-09-22 15:36 | Emergency (ER) | payer MEDICARE ==
[~2019-09-22] VITALS: Ht 167.6 cm; Wt 76.4 kg
[2019-09-22 15:48] VITALS: Ht 167.6 cm; Wt 76.4 kg
[2019-09-22 16:03] LABS: BASOPHILS 0.1 % (0-2); EOSINOPHILS 0.7 % (0-7); HEMATOCRIT 36.7 % (42.0-54.0); HEMOGLOBIN 11.9 g/dL (13.5-17.5); IMMATURE GRANULOCYTES 0.1 % (0-5); LYMPHOCYTES 29.7 % (15-50); MCH 30.6 pg (26.0-34.0); MCHC 32.4 g/dL (31.0-37.0); MCV 94.3 fL (80.0-100.0); MEAN PLATELET VOLUME 8.9 fL (7.4-10.4); MONOCYTES 5.7 % (2-11); NEUTROPHILS 63.7 % (40-80); PLATELET COUNT 350 10x3/uL (130-400); RBC 3.89 10x6/uL (4.20-6.10); RDW 15.6 % (11.5-14.5); WBC 8.3 10x3/uL (4.8-10.8)
[2019-09-22 16:11] LABS: CALC OSMOLALITY 276 mosm/kg (275-300); CALCIUM 8.6 mg/dL (8.5-10.1); CHLORIDE - SERUM 101 mmol/L (98-107); CREATININE - SERUM 0.9 mg/dL (0.6-1.3); GLUCOSE 150 mg/dL (74-106); POTASSIUM - SERUM 3.2 mmol/L (3.5-5.1); SODIUM 138 mmol/L (136-145); UREA NITROGEN 8 mg/dL (7-18); eGFR NON AFRICAN AMERICAN > 90 mL/min (90-120)
[2019-09-22 16:27] LABS: ALBUMIN 3.7 g/dL (3.4-5.0); ALKALINE PHOSPHATASE 117 U/L (30-120); ALT (SGPT) 24 U/L (10-68); AMYLASE - SERUM 56 U/L (25-115); BILIRUBIN - TOTAL 0.24 mg/dL (0.2-1.3); CKMB 0.6 U/L (0.0-3.6); CREATINE KINASE 44 UL (21-232); LIPASE 108 U/L (73-393); MAGNESIUM - SERUM 1.6 mg/dL (1.8-2.4)
[2019-09-22 16:34] LABS: TROPONIN-I < 0.017 ng/mL (0.000-0.060)
[2019-09-22 16:39] LABS: APTT 30.3 SECONDS (22.8-39.4); INR 1.05 (0.85-1.17); PROTIME 13.7 SECONDS (11.6-15.0)
[2019-09-22 17:28] LABS: BILIRUBIN NEGATIVE (NEGATIVE); GLUCOSE NEGATIVE (NEGATIVE); KETONE NEGATIVE (NEGATIVE); NITRITE NEGATIVE (NEGATIVE); UROBILINOGEN NORMAL (NORMAL)
[2019-09-22] MEDS ORDERED: PROTONIX40 MG PO (18:32)
[2019-09-22 19:13] VITALS: BP 132/79
== END 2019-09-22 19:15 | disposition home or self-care (01) ==
LOC: D.ER 15:36
PROVIDERS: Family Medicine
DX: R07.9 Chest pain, unspecified (principal); K29.70 Gastritis, unspecified, without bleeding; I11.0 Hypertensive heart disease with heart failure; I50.9 Heart failure, unspecified; J44.9 Chronic obstructive pulmonary disease, unspecified; Z72.0 Tobacco use; R10.13 Epigastric pain; R19.7 Diarrhea, unspecified

== ENCOUNTER 2019-09-30 20:37 | Emergency (ER) | payer MEDICARE ==
[~2019-09-30] VITALS: Ht 167.6 cm; Wt 70.3 kg
[~2019-09-30 20:37] MED LIST changes: +PROTONIX40 MG PO
[2019-09-30 20:49] VITALS: Ht 167.6 cm; Wt 70.3 kg
[2019-09-30 22:03] LABS: BASOPHILS 0.1 % (0-2); EOSINOPHILS 1.2 % (0-7); HEMOGLOBIN 11.9 g/dL (13.5-17.5); IMMATURE GRANULOCYTES 0.1 % (0-5); LYMPHOCYTES 33.7 % (15-50); MCH 30.3 pg (26.0-34.0); MCHC 32.2 g/dL (31.0-37.0); MCV 94.1 fL (80.0-100.0); MEAN PLATELET VOLUME 9.6 fL (7.4-10.4); MONOCYTES 7.6 % (2-11); NEUTROPHILS 57.3 % (40-80); PLATELET COUNT 380 10x3/uL (130-400); RBC 3.93 10x6/uL (4.20-6.10); RDW 15.8 % (11.5-14.5); WBC 8.9 10x3/uL (4.8-10.8)
[2019-09-30 22:06] LABS: CALC OSMOLALITY 277 mosm/kg (275-300); CALCIUM 8.5 mg/dL (8.5-10.1); CHLORIDE - SERUM 103 mmol/L (98-107); CREATININE - SERUM 0.7 mg/dL (0.6-1.3); GLUCOSE 106 mg/dL (74-106); SODIUM 140 mmol/L (136-145); UREA NITROGEN 10 mg/dL (7-18); eGFR NON AFRICAN AMERICAN > 90 mL/min (90-120)
[2019-09-30 22:20] LABS: ALBUMIN 3.5 g/dL (3.4-5.0); ALKALINE PHOSPHATASE 110 U/L (30-120); ALT (SGPT) 21 U/L (10-68); BILIRUBIN - TOTAL 0.25 mg/dL (0.2-1.3); LIPASE 110 U/L (73-393); PROTEIN - SERUM 7.5 g/dL (6.4-8.2)
[2019-09-30 22:21] LABS: TROPONIN-I < 0.017 ng/mL (0.000-0.060)
[2019-09-30 23:30] VITALS: BP 135/78
== END 2019-09-30 23:30 | disposition home or self-care (01) ==
LOC: D.ER 20:37
PROVIDERS: Family Medicine
DX: R10.9 Unspecified abdominal pain (principal); J44.9 Chronic obstructive pulmonary disease, unspecified; I11.0 Hypertensive heart disease with heart failure; I50.9 Heart failure, unspecified; Z72.0 Tobacco use; R11.2 Nausea with vomiting, unspecified; R19.7 Diarrhea, unspecified